=== PATIENT | male | born 1980 | race Caucasian/White ===

== ENCOUNTER 2019-08-22 17:28 | Emergency (ER) | payer OTHER ==
[~2019-08-22] VITALS: Ht 167.6 cm; Wt 63.5 kg
[2019-08-22] MEDS ORDERED: LOPRESSOR50 MG PO (19:26)
[2019-08-22 19:45] LABS: ABSOLUTE NEUTROPHILS 4.5 thou/uL (1.4-8.2); BASOPHILS 0.6 % (0.0-2.0); EOSINOPHILS 3.8 % (0.0-3.0); HEMATOCRIT 47.5 % (42.0-52.0); HEMOGLOBIN 16.4 gm/dL (14.0-18.0); LYMPHOCYTES 22.9 % (24.0-44.0); MCH 31.4 pg (26.0-34.0); MCHC 34.5 g/dL (28.0-37.0); MCV 90.8 fL (80.0-100.0); MONOCYTES 6.4 % (1.0-8.0); PLATELET COUNT 233 thou/uL (150-400); POLYS 66.3 % (36.0-66.0); RBC 5.23 mil/uL (4.50-6.00); RDW 12.4 % (10.5-14.5); WBC 6.7 thou/uL (4.0-11.0)
[2019-08-22 19:55] LABS: ANION GAP 7 mmol/L (7-16); BUN 10 mg/dL (7-18); CALCIUM 9.2 mg/dL (8.5-10.1); CHLORIDE 103 mmol/L (98-107); CO2 30 mmol/L (21-32); GLUCOSE 99 mg/dL (74-106); POTASSIUM 3.3 mmol/L (3.5-5.1); SODIUM 140 mmol/L (136-145)
[2019-08-22 20:04] LABS: TROPONIN-I <0.06 ng/mL (<0.06)
[2019-08-22 22:26] VITALS: BP 172/118
[2019-08-22] MEDS ORDERED: PRINIVIL10 MG PO (22:37)
--- NOTE | 2019-08-24 12:34 | EKG ---
[facility] [place] [address] ELECTROCARDIOGRAM REPORT Name: ZACHERY NOLAND Room #: [facility]P [facility]#: [id number] Admission: 08/22/19 Attend Phys: Discharge: 08/22/19 Date of : 82 Report #: [id number] THIS REPORT FOR: cc: FAM - No family physician/PCP FAM - No family physician/PCP Emmanuel Collins MD [facility] THIS REPORT FOR: //name// [facility] ED Test Date: 2019-08-22 Test Time: 19:35:44 Pat Name: ZACHERY NOLAND Department: Room: Gender: Childcare Director: STEFAN : 1980 Requested By: Shakira Lares Order Number: [id number] MD: Emmanuel Collins Measurements Intervals [place] Rate: 109 P: 55 ND: 171 QRS: 24 QRSD: 96 T: -19 QT: 305 QTc: 411 Interpretive Statements Sinus tachycardia Borderline repol abnrm, inferolateral leads No previous ECG available for comparison Electronically Signed On 08-23-2019 9:13:39 [employer]OUSING [employer] A[employer]LYST by Emmanuel Collins [email or web address] <ELECTRONICALLY SIGNED> By: Emmanuel Collins MD, [facility] 08/23/19 0913 [id number] 34 Emmanuel Collins MD, FAC /EPI
== END 2019-08-22 22:45 | disposition home or self-care (01) ==
LOC: ER 17:28
PROVIDERS: Nurse Practitioner
DX: I10 Essential (primary) hypertension (principal)